=== PATIENT | male | born 1965 | race Caucasian/White ===

== ENCOUNTER 2019-10-04 11:26 | Emergency (ER) | payer BC ==
[~2019-10-04] VITALS: Ht 193 cm; Wt 123.8 kg
[2019-10-04] MEDS ORDERED: AMLODIPINE BESY10 MG PO (11:39)
[2019-10-04] MEDS ORDERED: LIPITOR 20 MG T20 M1 PO (11:39)
[2019-10-04] MEDS ORDERED: ASA81BEC PO (11:39)
[2019-10-04] MEDS ORDERED: JANUMET 50-1,01 EACH PO (11:40)
[2019-10-04] MEDS ORDERED: LEXAPRO20 MG PO (11:40)
[2019-10-04] MEDS ORDERED: HUMALOG100 UNIT/1 SUBQ (11:40)
[2019-10-04] MEDS ORDERED: JARDIANCE25 MG PO (11:41)
[2019-10-04] MEDS ORDERED: LOSARTAN-HCTZ1 EAC3 PO (11:41)
[2019-10-04] MEDS ORDERED: LEVO-T50 MCG PO (11:41)
[2019-10-04] MEDS ORDERED: OMEPRAZOLE 20 M20 M1 PO (11:42)
[2019-10-04] MEDS ORDERED: ADCIRCA20 MG PO (11:42)
[2019-10-04 13:03] VITALS: BP 142/76
== END 2019-10-04 13:03 | disposition home or self-care (01) ==
LOC: M.ERS 11:26
DX: S61.217A Laceration without foreign body of left little finger without damage to nail, initial encounter (principal); S61.213A Laceration without foreign body of left middle finger without damage to nail, initial encounter; S61.215A Laceration without foreign body of left ring finger without damage to nail, initial encounter; E11.9 Type 2 diabetes mellitus without complications; I10 Essential (primary) hypertension; Z79.4 Long term (current) use of insulin; W26.8XXA Contact with other sharp object(s), not elsewhere classified, initial encounter; Y93.89 Activity, other specified; Y92.89 Other specified places as the place of occurrence of the external cause; Y99.8 Other external cause status